=== PATIENT | female | born 1995 | race African-American/Black ===

== ENCOUNTER 2021-11-03 12:21 | Emergency (ER) | payer SELFPAY ==
[2021-11-03 15:02] LABS: Hematocrit 39.3 % (36.0-45.0); Lymphocytes % 22.6 % (15.3-44.8); MPV 8.2 fL (7.6-11.3); RBC Red Blood Cell Count 4.14 M/uL (3.86-4.86)
[2021-11-03 15:08] LABS: Protime INR 1.25
[2021-11-03] MEDS ORDERED: LORazepam 2 MG/ML VIAL ONE ×2 (15:13→18:10)
[2021-11-03 15:27] LABS: ALT/SGPT 23 U/L (12-78); AST/SGOT 19 U/L (15-37); Albumin 4.2 g/dL (3.4-5.0); Alkaline Phosphatase 58 U/L (45-117); BUN Blood Urea Nitrogen 9 mg/dL (7-18); Bicarbonate 23 mmol/L (21-32); Bilirubin Direct 0.3 mg/dL (0-0.2); Bilirubin Total 1.5 mg/dL (0.2-1.0); Glucose Level 99 mg/dL (74-106); Potassium 3.8 mmol/L (3.5-5.1); Protein, Total 8.3 g/dL (6.4-8.2); Sodium Level 137 mmol/L (136-145)
[2021-11-03] MEDS ORDERED: RISPERIDONE 1 MG TABLET PO SCH (16:00)
--- NOTE | 2021-11-03 18:19 | ER ---
Nurse's Notes [facility] Name: Anh Denis Age: 26 yrs Sex: Female : 1995 Arrival Date: 11/03/2021 Time: 12:23 Bed 16 Private MD: Diagnosis: Schizophrenia, unspecified-with AV Presentation: 11/03 12:24 Chief complaint: Patient states: pt states she doesn't know who to trust at home, feels cb5 like she needs help. Denies being harmed and denies wanting to harm herself or others. Coronavirus screen: Vaccine status:. Ebola Screen: Patient negative for fever greater than or equal to 101.5 degrees Fahrenheit, and additional compatible Ebola Virus Disease symptoms Patient denies exposure to infectious person. Initial Sepsis Screen: Does the patient meet any 2 criteria? No. Patient's initial sepsis screen is negative. Does the patient have a suspected source of infection? No. Patient's initial sepsis screen is negative. Risk Assessment: Do you want to hurt yourself or someone else? Patient reports no desire to harm self or others. Onset of symptoms was November 03, 2021. 12:24 Method Of Arrival: Law Enforcement: [facility] 12:24 Acuity: GARRETT 2 cb5 Triage Assessment: 12:30 General: Appears comfortable, well groomed, well nourished, Behavior is calm, cb5 cooperative, flat. Pain: Denies pain. EENT: No deficits noted. Neuro: Level of Consciousness is awake, alert, flat affect. Cardiovascular: No deficits noted. Respiratory: No deficits noted. GI: No deficits noted. : No deficits noted. Derm: No deficits noted. Musculoskeletal: No deficits noted. Historical: - Allergies: 17:15 No Known Allergies; ss - Home Meds: 17:15 Risperdal 3 mg Oral tab 1 tab 2 times per day [Active]; ss - PMHx: 17:15 Schizophrenia; ss - PSHx: 17:15 None; ss - Immunization history:: Adult Immunizations unknown. - Social history:: Patient/guardian denies using alcohol, street drugs, The patient lives with family, Smoking status: unknown. - Family history:: not pertinent. Screenin:30 Abuse screen: Denies threats or abuse. Denies injuries from another. Nutritional cb5 screening: No deficits noted. Tuberculosis screening: No symptoms or risk factors identified. Fall Risk None identified. Assessment: 12:30 General: Appears comfortable, well groomed, Behavior is calm, cooperative, flat. Pain: cb5 Denies pain. Neuro: No deficits noted. Cardiovascular: No deficits noted. Respiratory: No deficits noted. GI: Patient currently denies. : Denies. EENT: No deficits noted. Derm: No deficits noted. Musculoskeletal: No deficits noted. 12:45 Reassessment: Patient and/or family updated on plan of care and expected duration. Pain cb5 level reassessed. Patient denies pain at this time. safety precautions are in effect. Pt is in view of nurses station. Denies SI/HI. 13:00 Reassessment: pt sitting in bed, no distress, denies pain. cb5 13:25 Reassessment: Assisted patient to restroom, informed her we need urine specimen, cb5 provided pt with specimen cup, stood close to door. Patient came out of restroom stated "I forgot to pee in the cup". 13:41 Reassessment: pt is in room pacing, nurse asked how she can help, pt stated her baby is cb5 o.k.. 15:10 Reassessment: Pt attempting to remove P.I.V., wanting to remove armband, explained to cb5 patient P.I.V. is needed. Patient then began to twist ER techs arm, new hernandez was called at this time. Pt was raising her voice at staff, asked how long does she need to be here. Pt was brought to ER by police. 15:15 Reassessment: Got ahold of sisters Delmi and Talia who states patient was last seen ss at home at around 4 this morning leaving and has not been acting herself the past couple days. Reportedly has not been taking her prescribed Risperidone in the past month. 15:20 Reassessment: second nurse contacted pharmacy and requested risperdal. cb5 15:43 Reassessment: patient refused Risperidal at this time. Security at bedside with cb5 patient. Pt clay restaints no distress. 15:50 Reassessment: pt awake, no distress. cb5 16:37 Reassessment: pt asleep, no distress, on night monitor, in front of nurses station. cb5 VSS WNL, safety precautions in effect. Pt has 1:1. 17:16 Reassessment: pt is asleep no distress. remains on night monitor. cb5 18:14 Reassessment: pt waking up HR 150-151, pt has tremors, notified M.D. Safety precautions cb5 in effect. Pt alert, denies pain. 18:38 Reassessment: Released patients left wrist restraint, P.I.V. is in left AC, right wrist cb5 in soft wrist restraint, pt attempting to remove PIV and cardiac wires. place left wrist restraint on. cadd technician is feeding patient. 19:00 Reassessment: Patient appears in no apparent distress at this time. No changes from ll3 previously documented assessment. Patient and/or family updated on plan of care and expected duration. Pain level reassessed. Patient is alert, oriented x 3, equal unlabored respirations, skin warm/dry/pink. 20:00 Reassessment: Patient appears in no apparent distress at this time. No changes from ll3 previously documented assessment. Patient and/or family updated on plan of care and expected duration. Pain level reassessed. Patient is alert, oriented x 3, equal unlabored respirations, skin warm/dry/pink. 20:30 Reassessment: Patient appears in no apparent distress at this time. Patient and/or ll3 family updated on plan of care and expected duration. Pain level reassessed. Patient is alert, oriented x 3, equal unlabored respirations, skin warm/dry/pink. Pt removed own restraints, pt is calm and cooperative, no apparent distress. 21:47 Reassessment: Patient appears in no apparent distress at this time. No changes from ll3 previously documented assessment. Patient and/or family updated on plan of care and expected duration. Pain level reassessed. Patient is alert, oriented x 3, equal unlabored respirations, skin warm/dry/pink. 22:53 Reassessment: Patient appears in no apparent distress at this time. Patient and/or ll3 family updated on plan of care and expected duration. Pain level reassessed. Patient is alert, oriented x 3, equal unlabored respirations, skin warm/dry/pink. Pt is sleeping, no apparent distress. 11/04 00:09 Reassessment: Patient appears in no apparent distress at this time. No changes from ll3 previously documented assessment. Patient and/or family updated on plan of care and expected duration. Pain level reassessed. Patient is alert, oriented x 3, equal unlabored respirations, skin warm/dry/pink. Gave report to Ashley at [facility]. 02:15 Reassessment: Patient appears in no apparent distress at this time. No changes from 3 previously documented assessment. Patient and/or family updated on plan of care and expected duration. Pain level reassessed. Patient is alert, oriented x 3, equal unlabored respirations, skin warm/dry/pink. 03:11 Reassessment: Patient appears in no apparent distress at this time. Patient and/or ll3 family updated on plan of care and expected duration. Pain level reassessed. Patient is alert, oriented x 3, equal unlabored respirations, skin warm/dry/pink. Pt is awake and alert, pulled out her own IV to L AC, pressure dressing applied, no redness, swelling or drainage, Pt is agitated and asking for belongings and trying to leave the unit, pt was reoriented and reassured that her belongings are safe and secured and was placed back in exam room with sitter. 04:03 Reassessment: Pt is calm and cooperative, sleeping with eyes closed, RR are even and ll3 unlabored, chest rising and falling, no signs or symptoms of distress. 05:16 Reassessment: Spoke to DARIAN Damian at [facility]. [facility] 07:16 Reassessment: Spoke to intake nurse at [facility] who states that she does not have ss any information on transferring the patient and stated to call [phone] Sandra to obtain information. Sandra did not answer, unable to leave . 07:25 General: Appears comfortable, Behavior is calm, sleeping. Respiratory: Airway is patent ww Respiratory effort is even, unlabored, Respiratory pattern is regular, symmetrical. 08:47 Reassessment: Patient appears in no apparent distress at this time. No changes from previously documented assessment. 09:30 Reassessment: Patient appears in no apparent distress at this time. No changes from previously documented assessment. sleeping in bed. 10:50 Reassessment: Patient appears in no apparent distress at this time. patient ate breakfast, requesting to use phone "to call someone other than 911". Displayed aggressive behavior to sitter and myself, redirected to bed where she tried to her paper gown around her neck, irritated that we wont let her. 11:47 Reassessment: Patient appears in no apparent distress at this time. awaiting deputy for transport. Psych: 11/03 12:45 [place] Suicide Severity Screening: denies. Objective: Patient is cooperative, using cb5 poor eye contact, Speech is slow, soft, Affect is flat. Pt denies substance abuse. Commitment: pt arrived via Police. 13:07 [place] Suicide Severity Screening: "In the past month, have you actually had any cb5 thoughts of killing yourself?". 13:44 [place] Suicide Severity Screening: "In your lifetime, have you ever done anything, cb5 started to do anything, or prepared to do anything to end your life?". 15:49 [place] Suicide Severity Screening: In the past month, have you wished you were cb5 or wished you could go to sleep and not wake up?. 20:00 Subjective: Pt states she is "thinking about things". Interventions: Patient placed in [facility] hospital gown. Searched person for dangerous items. Safety Checks: Personal items have been removed. Door is open. Sitter at bedside. Vital Signs: 12:24 BP 118 / 74; Pulse 89; Resp 16; Temp 98.4; Pulse Ox 99% ; Weight 62.6 kg; Height 5 ft. cb5 7 in. (170.18 cm); Pain 0/10; 16:00 BP 144 / 74; Pulse 94; Resp 16; Temp 98.6; Pulse Ox 98% ; Pain 0/10; cb5 21:56 BP 114 / 43; Pulse 85; Resp 15; Pulse Ox 100% ; ll3 23:01 BP 111 / 56; Pulse 83; Resp 17; Pulse Ox 100% on R/A; 3 11/04 04:29 BP 126 / 86; Pulse 104; Resp 16; Pulse Ox 100% on R/A; ll3 08:15 ww 12:02 BP 112 / 68; Pulse 114; Resp 16; Temp 98.8; Pulse Ox 99% on R/A; ww 11/03 12:24 Body Mass Index 21.61 (62.60 kg, 170.18 cm) cb5 08:15 patient refused vital signs ww ED Course: 11/03 12:23 Patient arrived in ED. bd 12:24 Ewelina Morton, RN is Primary Nurse. cb5 12:24 Swati Rodriguez MD is Attending Physician. ma2 12:30 Bed in low position. Call light in reach. Side rails up X 1. cb5 12:30 No provider procedures requiring assistance completed. cb5 12:32 Arm band placed on right wrist. cb5 13:02 Triage completed. cb5 14:49 Salicylate Sent. cb5 14:49 Ptt, Activated Sent. cb5 14:49 PT-INR Sent. cb5 14:49 Hepatic Function Sent. cb5 14:49 ETOH Level Sent. cb5 14:49 CBC with Diff Sent. cb5 14:49 Basic Metabolic Panel Sent. cb5 14:49 Acetaminophen Sent. cb5 14:50 COVID-19 SARS RT PCR (Document "Date of Onset" if Symptomatic) Sent. cb5 15:07 Test, Serum Sent. mh5 15:07 Acetaminophen Sent. mh5 15:07 Basic Metabolic Panel Sent. mh5 15:07 ETOH Level Sent. mh5 15:07 Hepatic Function Sent. mh5 15:07 PT-INR Sent. mh5 15:07 Ptt, Activated Sent. mh5 15:07 Salicylate Sent. mh5 15:08 Initial lab(s) drawn, by ED staff, sent to lab. EKG done, by ED staff, reviewed by linh Rodriguez MD COVID swab sent to lab. Inserted saline lock: 22 gauge in left antecubital area, using aseptic technique. Blood collected. 15:09 Warm blanket given. Diet: Patient given a regular meal tray. once a shift. 5 16:33 contacted [facility], requested a screener to evaluate pt. bd 16:42 faxed chart ot [facility]. bd 16:47 [place] [facility] [place] [place]. 19:00 Report given to Gave report Bibi Grimaldo cb5 22:28 [facility] called "pt in pending clasp machine operator". mw2 23:33 faxed patient exclusionary form and clinicals to [facility]. mw2 23:35 faxed patient clinicals to all available psych facilities. mw2 23:54 [facility] nurse to nurse later on and possibly have a mw2 bed tomorrow. 23:56 nurse to nurse from [facility]. mw2 11/04 00:[address] Garay with the doctor from [facility]. mw2 00:58 Attending Physician role handed off by Swati Rodriguez MD rn 00:58 Kameron Garay MD is Attending Physician. rn 07:25 No apparent distress. Appears to be sleeping. ww 07:25 Bed in low position. Call light in reach. Side rails up X2. sitter at bedside, safety ww check completed. Patient is placed in psych hold. 08:11 Attending Physician role handed off by Kameron Garay MD kdr 08:11 Christopher James MD is Attending Physician. kdr 08:47 No apparent distress. Appears to be sleeping. 1:1 sitter at bedside. ww 08:52 administrative approval was given at 0057 / Dr. Sun has accepted the patient in transfer/ administrative approval given by Nevin Mcpherson/ patient has been accepted to [facility]. 12:17 Patient did not have IV access during this emergency room visit. patient pulled out IV ww during previous shift. Restraints: 11/03 15:18 Violent/Self Destructive Restraint: Initiated November 03, 2021 at 15:15 Staff present cb5 during the Initiation of Restraint: charge nurse, security, new hernandez was called. ER nurses at bedside.. Monitoring: Mental status: agitated/restless. 15:30 Violent/Self Destructive Restraint: Monitoring: Mental status: agitated/restless, cb5 Cognition: poor judgement, poor safety awareness, Impulsive, poor attention/concentration, Circulation: Within defined parameters (based on Cardiovascular assessment). Skin integrity: Within defined parameters (based on Integumentary assessment). 15:45 Violent/Self Destructive Restraint: Monitoring: Mental status: agitated/restless, cb5 Cognition: poor judgement, poor safety awareness, Impulsive, poor attention/concentration, Circulation: Within defined parameters (based on Cardiovascular assessment). Skin integrity: Within defined parameters (based on Integumentary assessment). 16:00 Violent/Self Destructive Restraint: Monitoring: Mental status: agitated/restless, cb5 Cognition: poor judgement, poor safety awareness, Impulsive, poor attention/concentration, Circulation: Within defined parameters (based on Cardiovascular assessment). Skin integrity: Within defined parameters (based on Integumentary assessment). 16:15 Violent/Self Destructive Restraint: Monitoring: Mental status: subdued, Cognition: poor cb5 judgement, poor safety awareness, Impulsive, Circulation: Within defined parameters (based on Cardiovascular assessment). Skin integrity: Within defined parameters (based on Integumentary assessment). 16:36 Violent/Self Destructive Restraint: Restraint discontinuation: Discontinued at October at 16:30 Effective alternative interventions: 1:1 patient care, placed near Nurse station, trained sitter in room. 18:17 Violent/Self Destructive Restraint: Initiated November 03, 2021 at 18:17 Staff present [facility] during the Initiation of Restraint: nurse applied chloé wrist restraints, pt wanting to remove P.I.V and wires off from night monitor. increased restlessness, denies pain. . 18:33 Violent/Self Destructive Restraint: Monitoring: Mental status: agitated/restless, cb5 Cognition: poor judgement, Impulsive, Circulation: Within defined parameters (based on Cardiovascular assessment). Skin integrity: Within defined parameters (based on Integumentary assessment). 18:38 Violent/Self Destructive Restraint: Hydration/Food: Meal/Snack provided:tolerated. cb5 18:48 Violent/Self Destructive Restraint: Monitoring: Mental status: agitated/restless, cb5 Cognition: poor judgement, poor attention/concentration, Circulation: Within defined parameters (based on Cardiovascular assessment). Skin integrity: Within defined parameters (based on Integumentary assessment). 18:54 Violent/Self Destructive Restraint: Monitoring: Mental status: agitated/restless, cb5 Cognition: poor judgement, poor safety awareness, Impulsive, poor attention/concentration, Circulation: Within defined parameters (based on Cardiovascular assessment). Skin integrity: Within defined parameters (based on Integumentary assessment). 19:02 Violent/Self Destructive Restraint: Monitoring: Mental status: agitated/restless, cb5 Cognition: poor judgement, poor safety awareness, Impulsive, poor attention/concentration, Circulation: Within defined parameters (based on Cardiovascular assessment). Skin integrity: Within defined parameters (based on Integumentary assessment). 19:17 Violent/Self Destructive Restraint: Hydration/Food: PO fluids provided:tolerated. ll3 19:32 Violent/Self Destructive Restraint: Monitoring: Mental status: agitated/restless, ll3 Cognition: poor judgement, poor safety awareness, Impulsive, poor attention/concentration, Circulation: Within defined parameters (based on Cardiovascular assessment). Skin integrity: Within defined parameters (based on Integumentary assessment). 19:47 Violent/Self Destructive Restraint: Monitoring: Mental status: agitated/restless, ll3 Cognition: poor judgement, poor safety awareness, Impulsive, poor attention/concentration, Circulation: Within defined parameters (based on Cardiovascular assessment). Skin integrity: Within defined parameters (based on Integumentary assessment). 20:02 Violent/Self Destructive Restraint: Monitoring: Mental status: patient asleep, ll3 Cognition: poor judgement, poor safety awareness, Impulsive, poor attention/concentration, Circulation: Within defined parameters (based on Cardiovascular assessment). Skin integrity: Within defined parameters (based on Integumentary assessment). 20:17 Violent/Self Destructive Restraint: Hydration/Food: patient asleep. ll3 20:30 Violent/Self Destructive Restraint: Readiness for Discontinue: Release criteria met. No ll3 longer exhibiting violent or self destructive behavior. Alt interventions effective. Debriefing: Conducted: Yes Staff in attendance: DARIAN Carroll. Success/Problems/Necessary Modifications: Pt is calm and cooperative, restraints DC'd. Administered Medications: 15:13 Drug: Ativan (LORazepam) 2 mg Route: IVP; Site: left antecubital; ss 15:19 Not Given (Other Intervention Used): Ativan (LORazepam) 2 mg IM once ss 18:08 Drug: Ativan (LORazepam) 1 mg Route: IVP; Site: left antecubital; cb5 11/04 07:05 Follow up: Response: No adverse reaction tk1 07:12 Not Given (Patient Refused): RisperDAL (risperiDONE) 2 mg PO once ll3 Outcome: 11/03 18:18 ER care complete, transfer ordered by . ma2 11/04 12:17 Transferred Note: by deputy ww Condition: stable Instructed on the need for transfer. 12:18 Patient left the ED. ww Signatures: Marlena Duque Kevin, MD MD kdr Nieto, Roman, MD MD rn [facility], DARIAN Contreras RN Solange Bingham Swati Onofre MD MD [facility] [place] 2 Cierra Carrera Christine cs9 Dillan Cedeno RN RN ll3 Dea Moore, RN RN ww Marcy Morrow tk1 Ewelina Morton, RN RN cb5 Corrections: (The following items were deleted from the chart) 11/03 20:31 19:17 Violent/Self Destructive Restraint: Monitoring: Mental status: agitated/restless, ll3 Cognition: poor judgement, poor safety awareness, Impulsive, poor attention/concentration, Circulation: Within defined parameters (based on Cardiovascular assessment). Skin integrity: Within defined parameters (based on Integumentary assessment) 3 11/04 06:43 05:21 Rickie nurse from [facility] called and did nurse to nurse. Waiting cs9 for after 8AM to email Judge Bryan to sign warrant cs9
--- NOTE | 2021-11-03 18:19 | EDPHYS ---
Physician Documentation [facility] Name: Anh Denis Age: 26 yrs Sex: Female : 1995 Arrival Date: 11/03/2021 Time: 12:23 Bed 16 Private MD: ED Physician Christopher James HPI: 11/03 14:29 This 26 yrs old Black Female presents to ER via Law Enforcement with complaints of ma2 Psych Problem. 14:29 The patient presents to the emergency department with anxiety, depression. Associated ma2 signs and symptoms: Pertinent negatives: chest pain, depression, hallucinations, paranoia, substance abuse, tremor. 14:29 Severity of symptoms: At their worst the symptoms were very mild in the emergency ma2 department the symptoms are unchanged. 26-year-old female, brought in by police for delusions, and she stated that she would like to jump in water so they brought her here with concern for suicidal risk. When I talked to the patient she is disorganized does not answer questions, she think she is [employer] agent, she talked herself. Does not answer all question, does not engage in conversation.. Historical: - Allergies: 17:15 No Known Allergies; ss - Home Meds: 17:15 Risperdal 3 mg Oral tab 1 tab 2 times per day [Active]; ss - PMHx: 17:15 Schizophrenia; ss - PSHx: 17:15 None; ss - Immunization history:: Adult Immunizations unknown. - Social history:: Patient/guardian denies using alcohol, street drugs, The patient lives with family, Smoking status: unknown. - Family history:: not pertinent. ROS: 14:29 Constitutional: Negative for fever, chills, and weight loss, Eyes: Negative for injury, ma2 pain, redness, and discharge. 14:29 All other systems are negative. Exam: 14:29 Constitutional: This is a well developed, well nourished patient who is awake, alert, ma2 and in no acute distress. Head/Face: Normocephalic, atraumatic. Eyes: Pupils equal round and reactive to light, extra-ocular motions intact. Lids and lashes normal. Conjunctiva and sclera are non-icteric and not injected. Cornea within normal limits. Periorbital areas with no swelling, redness, or edema. ENT: Nares patent. No nasal discharge, no septal abnormalities noted. Tympanic membranes are normal and external auditory canals are clear. Oropharynx with no redness, swelling, or masses, exudates, or evidence of obstruction, uvula midline. Mucous membranes moist. Neck: Trachea midline, no thyromegaly or masses palpated, and no cervical lymphadenopathy. Supple, full range of motion without nuchal rigidity, or vertebral point tenderness. No Meningismus. Chest/axilla: Normal chest wall appearance and motion. Nontender with no deformity. No lesions are appreciated. Cardiovascular: Regular rate and rhythm with a normal S1 and S2. No gallops, murmurs, or rubs. Normal PMI, no JVD. No pulse deficits. Respiratory: Lungs have equal breath sounds bilaterally, clear to auscultation and percussion. No rales, rhonchi or wheezes noted. No increased work of breathing, no retractions or nasal flaring. Abdomen/GI: Soft, non-tender, with normal bowel sounds. No distension or tympany. No guarding or rebound. No evidence of tenderness throughout. Back: No spinal tenderness. No costovertebral tenderness. Full range of motion. Skin: Warm, dry with normal turgor. Normal color with no rashes, no lesions, and no evidence of cellulitis. MS/ Extremity: Pulses equal, no cyanosis. Neurovascular intact. Full, normal range of motion. Neuro: Awake and alert, GCS 15, oriented to person, place, time, and situation. Cranial nerves II-XII grossly intact. Motor strength 5/5 in all extremities. Sensory grossly intact. Cerebellar exam normal. Normal gait. Psych: Awake, alert, does not answer orientation questions, has hallucinations and delusions. Flat affect, calm Vital Signs: 12:24 BP 118 / 74; Pulse 89; Resp 16; Temp 98.4; Pulse Ox 99% ; Weight 62.6 kg; Height 5 ft. cb5 7 in. (170.18 cm); Pain 0/10; 16:00 BP 144 / 74; Pulse 94; Resp 16; Temp 98.6; Pulse Ox 98% ; Pain 0/10; cb5 21:56 BP 114 / 43; Pulse 85; Resp 15; Pulse Ox 100% ; ll3 23:01 BP 111 / 56; Pulse 83; Resp 17; Pulse Ox 100% on R/A; ll3 11/04 04:29 BP 126 / 86; Pulse 104; Resp 16; Pulse Ox 100% on R/A; ll3 08:15 ww 12:02 BP 112 / 68; Pulse 114; Resp 16; Temp 98.8; Pulse Ox 99% on R/A; ww 11/03 12:24 Body Mass Index 21.61 (62.60 kg, 170.18 cm) cb5 08:15 patient refused vital signs ww MDM: 11/03 12:25 Patient medically screened. ma2 15:20 ED course: Sister contacted she said that she has schizophrenia, she had similar ma2 episodes in the past she is on risperidone.. 18:16 Differential diagnosis: drug withdrawal. acute psychotic break, depression, psychosis ma2 secondary to non-compliance. Data reviewed: vital signs, nurses notes, EMS record, lab test result(s). Counseling: I had a detailed discussion with the patient and/or guardian regarding: the historical points, exam findings, and any diagnostic results supporting the discharge/admit diagnosis, the presence of at least one elevated blood pressure reading (>120/80) during this emergency department visit, the need for further work-up and treatment in the hospital, the need to transfer to another facility. Response to treatment: the patient's symptoms have markedly improved after treatment. ED course: Patient is medically cleared, pending [place] eval and disposition. Will sign out to upcoming ED team as my shift has ended.. 19:56 ED course: Pt sleeping comfortably, passed on to me by Dr. Rodriguez, report was pending [place] transfer, has been medically cleared. Told staff that can remove IV as well as restraints. . 11/04 00:58 ED course: [id number] performed with [place] \\T\\ [id number]. rn 11:04 ED course: Continues to be stable in the ED. She does not currently require any further kdr intervention. 11/03 14:24 Order name: Acetaminophen; Complete Time: 18:15 [facility] 11/03 14:24 Order name: Basic Metabolic Panel; Complete Time: 18:15 [facility] 11/03 14:24 Order name: CBC with Diff; Complete Time: 18:15 [facility] 11/03 14:24 Order name: ETOH Level; Complete Time: 18:15 ma11/03 14:24 Order name: Hepatic Function; Complete Time: 18:15 mi11/03 14:24 Order name: PT-INR; Complete Time: 18:15 [facility] 11/03 14:24 Order name: Ptt, Activated; Complete Time: 18:15 mi11/03 14:24 Order name: Salicylate; Complete Time: 18:15 mi11/03 14:24 Order name: Urine Drug Screen [facility] 11/03 14:40 Order name: COVID-19 SARS RT PCR (Document "Date of Onset" if Symptomatic); Complete bd Time: 18:15 11/03 15:00 Order name: Test, Serum; Complete Time: 18:15 11/03 14:24 Order name: EKG; Complete Time: 14:25 [facility] 11/03 14:24 Order name: EKG - Nurse/Tech; Complete Time: 14:45 mi11/03 14:24 Order name: IV Saline Lock; Complete Time: 14:45 mi11/03 14:24 Order name: Labs collected and sent; Complete Time: 14:45 mi11/03 14:24 Order name: Suicide Precautions; Complete Time: 14:45 mi11/03 14:24 Order name: Suicide Screening ([place]); Complete Time: 14:50 [facility] 11/03 15:06 Order name: Diet Regular; Complete Time: 15:07 [facility] 11/03 15:21 Order name: Restraint:Violent/Self Destructive (Adult:18yo or >); Complete Time: 15:21 11/03 17:00 Order name: Diet Finger Food; Complete Time: 17:00 11/03 18:17 Order name: Restraint:Violent/Self Destructive (Adult:18yo or >); Complete Time: 18:17 cb5 Administered Medications: 11/03 15:13 Drug: Ativan (LORazepam) 2 mg Route: IVP; Site: left antecubital; ss 15:19 Not Given (Other Intervention Used): Ativan (LORazepam) 2 mg IM once ss 18:08 Drug: Ativan (LORazepam) 1 mg Route: IVP; Site: left antecubital; cb5 11/04 07:05 Follow up: Response: No adverse reaction tk1 07:12 Not Given (Patient Refused): RisperDAL (risperiDONE) 2 mg PO once ll3 Disposition Summary: 11/03/21 18:18 Transfer Ordered Transfer Location: Psych Facility ma2 Reason: Higher level of care ma2 Condition: Stable ma2 Problem: new ma2 Symptoms: are unchanged ma2 Accepting Physician: JOEL(11/04/21 12:18) ww Diagnosis - Schizophrenia, unspecified - with [facility] ma2 Forms: - Medication Reconciliation Form ma2 - SBAR form ma2 Signatures: Dispatcher [employer] EDChristopher Sagastume MD MD kdr Nieto, Roman, MD MD rn Smirch, Shelby, RN RN Swati Rodriguez MD MD ma2 Dea Moore RN RN ww Ewelina Morton RN RN cb5 Dillan Cedeno RN ll3 Marcy Morrow tk1 Corrections: (The following items were deleted from the chart) 12:18 11/03 18:18 [facility] ma2 ww
[2021-11-04 12:34] VITALS: BP 112/68; TEMP 98.8; O2SAT 99
== END 2021-11-04 12:18 ==
LOC: ER 12:21
DX: F20.9 Schizophrenia, unspecified (principal); Z78.1 Physical restraint status; Z20.822 Contact with and (suspected) exposure to COVID-19
CPT/HCPCS: 36415; 80048; 80076; 80320; 80329; 84703; 85025; 85610; 85730; 93005; U0003